=== PATIENT | female | born 1970 | race Caucasian/White ===

== ENCOUNTER 2016-10-28 20:11 | Emergency (ER) | payer MEDICARE ==
[2016-10-28 20:11] VITALS: BMI 29.8
[2016-10-28 20:54] VITALS: TEMP 98.5
[2016-10-28] MEDS ORDERED: Lidocaine 5% Patch TD STA (21:27)
[2016-10-28] MEDS ORDERED: Dexamethasone 4 mg/1 ml IM STA (21:28)
[2016-10-28] MEDS ORDERED: Lidocaine 5% Patch TD ONE (21:36)
[2016-10-28] MEDS ORDERED: Dexamethasone 4 mg/1 ml ONE (21:37)
--- NOTE | 2016-10-28 22:28 | C.PDOC ---
History Of Present Illness 46 year old female who presents to the ER with a complaint of chronic back pain that has been radiating to the left leg over the past 2-3 days. Patient is on percocet at home but states the pain is not controlled; denies recent trauma, injury, or urinary symptoms. Time Seen by Provider: 10/28/16 21:15 Chief Complaint (Nursing): Back Pain History Per: Patient History/Exam Limitations: no limitations Onset/Duration Of Symptoms: Days Current Symptoms Are (Timing): Still Present Quality Of Discomfort: Unable To Describe Previous Symptoms: Back Pain Associated Symptoms: None Exacerbating Factor(s): Nothing Recent travel outside of the [place]: No Past Medical History Reviewed: Historical Data, Nursing Documentation, Vital Signs Vital Signs: Last Vital Signs Temp 98.5 F 10/28/16 20:50 Pulse 79 10/28/16 22:34 Resp 16 10/28/16 22:34 BP 117/82 10/28/16 22:34 Pulse Ox 98 10/28/16 22:34 - Medical History PMH: Back Problems, Depression, Kidney Stones (left kidney) Surgical History: Back Surgery (2011 2013), Cholecystectomy (2006) Family History: States: Unknown Family Hx - Social History Hx Tobacco Use: Yes Hx Alcohol Use: No Hx Substance Use: No - Immunization History Hx Tetanus Toxoid Vaccination: No Hx Influenza Vaccination: No Hx Pneumococcal Vaccination: No Review Of Systems Genitourinary: Negative for: Dysuria, Incontinence, Hematuria Musculoskeletal: Positive for: Back Pain, Leg Pain Physical Exam - Physical Exam Appears: Non-toxic Skin: Normal Color, Warm, Dry Head: Atraumatic, Normacephalic Oral Mucosa: Moist Gastrointestinal/Abdominal: Soft, No Tenderness Back: No Vertebral Tenderness, Paraspinal Tenderness (Left buttock) Extremity: Normal ROM (x4), Tenderness (Left posterior thigh), No Deformity, No Swelling Neurological/Psych: Oriented x3, Normal Speech, Normal Cognition ED Course And Treatment O2 Sat by Pulse Oximetry: 97 (Room air) Pulse Ox Interpretation: Normal Progress Note: Toradol, decadron, and neurontin administered. Lidoderm patch applied. On reevaluation, patient's pain as improved; will discharge home with instuctions to follow up with PMD. Disposition - Disposition Disposition: HOME/ ROUTINE Disposition Time: 22:26 Condition: STABLE Additional Instructions: Follow up with your seo marketing specialist JIMMIE. Return to ED if feel worse. Prescriptions: Lidocaine 5% [Lidoderm] 1 patch TP DAILY #30 patch Gabapentin [Neurontin] 100 mg PO TID #30 capsule Instructions: Lumbar Radiculopathy (ED) - Clinical Impression Clinical Impression: Lumbar radiculopathy - Scribe Statement The provider has reviewed the documentation as recorded by the Scribjhonny Rueda All medical record entries made by the Robbibjhonny were at my direction and personally dictated by me. I have reviewed the chart and agree that the record accurately reflects my personal performance of the history, physical exam, medical decision making, and the department course for this patient. I have also personally directed, reviewed, and agree with the discharge instructions and disposition.
[2016-10-28 22:35] VITALS: BP 117/82; PULSE 79; RESP 16
[2016-10-28 23:08] VITALS: O2SAT 97
== END 2016-10-28 22:34 | disposition home or self-care (01) ==
LOC: C.ER 20:11
DX: M54.16 Radiculopathy, lumbar region (principal)
CPT/HCPCS: 96372; 99283; J1100; J1885

== ENCOUNTER 2017-10-01 23:11 | Emergency (ER) | payer MEDICARE, OTHER ==
[2017-10-01 23:11] VITALS: BMI 29.8
[2017-10-01 23:26] VITALS: BP 130/84; PULSE 85; RESP 16; TEMP 97.8; O2SAT 98
--- NOTE | 2017-10-01 23:55 | C.PDOC ---
History Of Present Illness 47 year old female with a Hx of chronic neck pain s/p cervical spine fusion presents to the ER with a complaint of increasing neck pain that radiates to the lower back. Patient states the pain worsens with neck movement and notes her neck feels stiff. She was given a prescription for muscle relaxers, however , she stopped taking them due to the side effects, states she prefers valium PO. Denies trauma, weakness, or numbness. Time Seen by Provider: 10/01/17 23:32 Chief Complaint (Nursing): Back Pain History Per: Patient History/Exam Limitations: no limitations Onset/Duration Of Symptoms: Days Current Symptoms Are (Timing): Still Present Quality Of Discomfort: Unable To Describe Previous Symptoms: Neck Pain, Chronic Pain, Prior Surgery Associated Symptoms: None Exacerbating Factor(s): Movement Recent travel outside of the [place]: No Past Medical History Reviewed: Historical Data, Nursing Documentation, Vital Signs Vital Signs: Last Vital Signs Temp 97.8 F 10/01/17 23:19 Pulse 85 10/01/17 23:19 Resp 16 10/01/17 23:19 BP 130/84 10/01/17 23:19 Pulse Ox 98 10/02/17 01:00 - Medical History PMH: Back Problems, Depression, Kidney Stones (left kidney 2006), Chronic Kidney Disease Surgical History: Back Surgery (2008 and 2016 Spinal fusion), Cholecystectomy ( 2006) Family History: States: Unknown Family Hx - Social History Hx Tobacco Use: Yes Hx Alcohol Use: No Hx Substance Use: No - Immunization History Hx Tetanus Toxoid Vaccination: No Hx Influenza Vaccination: No Hx Pneumococcal Vaccination: No Review Of Systems Musculoskeletal: Positive for: Neck Pain, Back Pain (Radiating from neck) Neurological: Negative for: Weakness, Numbness Physical Exam - Physical Exam Appears: Non-toxic Skin: Normal Color, Warm, Dry Head: Atraumatic, Normacephalic Eye(s): bilateral: Normal Inspection Neck: Paracervical Tenderness, Other (midline cervical scar, ROM of neck causes pain) Back: No Vertebral Tenderness, No Paraspinal Tenderness Extremity: Normal ROM (x4) Neurological/Psych: Oriented x3, Normal Speech, Normal Motor, Normal Sensation Gait: Steady ED Course And Treatment O2 Sat by Pulse Oximetry: 98 (Room air) Pulse Ox Interpretation: Normal Progress Note: Valium administered with relief of pain. Patient is ambulatory in the ER with a steady gait, will discharge home with Rx and advise to follow up with PMD for further pain management. Disposition Counseled Patient/Family Regarding: Diagnosis, Need For Followup, Rx Given - Disposition Referrals: Sukhjinder Bashir MD [Medical Doctor] - Disposition: HOME/ ROUTINE Disposition Time: 23:54 Condition: STABLE Additional Instructions: Continue current pain medications Take medications as directed Return to ER if worse Prescriptions: diaZEpam [Valium] 5 mg PO BID PRN #6 tab PRN Reason: Muscle Spasm Instructions: Muscle Spasms (DC) Forms: [employer] (Persian) - Clinical Impression Clinical Impression: Neck muscle spasm - PA / TECHNICAL SOLUTION ARCHITECT / Resident Statement MD/DO has reviewed & agrees with the documentation as recorded. - Scribe Statement The provider has reviewed the documentation as recorded by the Scribjhonny Rueda All medical record entries made by the Robbibjhonny were at my direction and personally dictated by me. I have reviewed the chart and agree that the record accurately reflects my personal performance of the history, physical exam, medical decision making, and the department course for this patient. I have also personally directed, reviewed, and agree with the discharge instructions and disposition.
== END 2017-10-02 00:15 | disposition home or self-care (01) ==
LOC: C.ER 23:11
DX: M62.838 Other muscle spasm (principal)